=== PATIENT | female | born 1940 | race Caucasian/White ===

== ENCOUNTER 2018-08-04 08:35 | Day surgery (SDC) | payer SELFPAY ==
[2018-08-03 12:10] VITALS: BMI 32.8
[2018-08-04] MEDS ORDERED: ROCURONIUM BROMIDE 50 MG/5 ML VIAL ONE ×2 (10:02→11:45)
[2018-08-04] MEDS ORDERED: SUCCINYLCHOLINE CHLORIDE 200 MG/10 ML VIAL ONE (10:02)
[2018-08-04] MEDS ORDERED: PROPOFOL 20 ML ONE (10:02)
[2018-08-04] MEDS ORDERED: fentaNYL CITRATE 250 MCG/5 ML VIAL ONE (10:02)
[2018-08-04] MEDS ORDERED: LIDOCAINE HCL/PF 2% SDV 5ML VIAL ONE (10:03)
[2018-08-04] MEDS ORDERED: MIDAZOLAM HCL 2 MG/2 ML SINGLE DOSE VIAL ONE (10:03)
[2018-08-04] MEDS ORDERED: DEXAMETHASONE SOD PHOSPHATE 4 MG/1 ML VIAL ONE (10:03)
[2018-08-04] MEDS ORDERED: LACTATED RINGERS SOLUTION 1,000 ML IV SCH (10:15)
[2018-08-04] MEDS ORDERED: PHENYLEPHRINE HCL 10 MG/1 ML SINGLE DOSE VIAL ONE (10:22)
[2018-08-04] MEDS ORDERED: ceFAZolin SODIUM 1 GM VIAL ONE (10:45)
[2018-08-04] MEDS ORDERED: ceFAZolin SODIUM 1 GM VIAL IVPB ONE (10:47)
[2018-08-04] MEDS ORDERED: MINERAL OIL 25 ML OIL ONE (12:00)
--- NOTE | 2018-08-04 13:27 | OP ---
Operative Note - Note: Operative Date: 08/04/18 Pre-Operative Diagnosis: Aging Face Operation: Facelift Post-Operative Diagnosis: Same as Pre-op Surgeon: Zain Taylor Anesthesia: General Estimated Blood Loss (mls): 20
[2018-08-04] MEDS: ONDANSETRON 4 MG/2 ML VIAL IVPUSH PRN ×2 (13:30→14:30)
[2018-08-04] MEDS ORDERED: ONDANSETRON 4 MG/2 ML VIAL ONE (13:32)
[2018-08-04] MEDS ORDERED: ONDANSETRON 4 MG/2 ML VIAL IVPUSH ONE (14:19)
[2018-08-04 17:15] VITALS: BP 113/64; PULSE 91; TEMP 97.4
--- NOTE | 2018-08-05 14:28 | OP ---
DATE OF OPERATION: 08/04/2018 SURGEON: Alfredito Taylor MD PREOPERATIVE DIAGNOSIS: Aging face deformity. POSTOPERATIVE DIAGNOSIS: Aging face deformity. OPERATIVE PROCEDURE: Face lift with related procedures of liposuction and fat transfer to the nasal labial folds. 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 The risks and benefits of surgical versus nonsurgical alternatives as well as the material complications of the procedure were described with the patient on multiple occasions preoperatively. She had medical clearance for the procedure and the procedure was discussed preoperatively in the holding area as well as marked in the sitting position with the patient's knowledge of both the incisions and the plan for the procedure. All questions were asked and answered. OPERATIVE PROCEDURE IN DETAIL: The patient was taken to the operating room and after induction of general anesthesia in supine position, both arms were tucked and padded and then the prepping and draping of the face was carried out with head drape in the usual fashion. One percent local lidocaine anesthesia with 1:200,000 epinephrine was injected along the preauricular and postauricular incisions in the usual fashion for face lift and in the submental area of the chin. At this point, a dilute epinephrine solution was injected into the neck for liposuction of the neck and harvest of subcutaneous fat. After allowing 10 minutes of topical anesthesia and hemostasis, incision was made in the submental crease with a stab incision. Using the Hussein cannula, a suction-assisted lipectomy was carried out over the entire neck from both the submental position and then by making stabs in the preauricular area at the lobule. Approaches from both sides were also suctioned along the neck area and the jaw line. Once this was accomplished, tissue was harvested and protected on the back table in sterile fashion. A standard face lift was carried out using an incision in the preauricular post tragal area and extending around the lobule to the retroauricular area and down the neck line. Skin flaps were raised using optical magnification of 2.5 power and these were carried forward over the SMAS on the right side. Hemostasis was meticulously obtained throughout and then a SMAS incision was made and the SMAS itself was raised toward the midline and nasolabial fold. A sub SMAS dissection was carried out, protecting the nerves very carefully and then the SMAS was elevated and rotated superiorly and medially, elevating the neck and check tissues. This was imbricated and tacked using 4-0 Vicryl sutures in interrupted fashion in multiple locations elevating the SMAS into its new position. The skin and subcutaneous tissues were then advanced superiorly and laterally, putting the skin into a pleasing contour over the ear and redraped. Skin was then excised on the right side to a pleasing contour with the patient in the midline position. Once this was accomplished, the wounds were closed using interrupted 3-0 Biosyn suture on the deep tissue, running 4-0 Prolene in the postauricular area and then cody along the hairline and a 5-0 nylon suture in front of the ear in the preauricular area along the tragus and superiorly along the ear itself. The patient was then turned to the opposite position and the exact same procedure was carried out symmetrically on the opposite left side. Once this was completed with all the suturing, the fatty tissue dermal fat was then taken. Stab incisions made in the alar base and dissection was carried along the nasolabial fold and marionette lines. This tissue was then placed into the subdermal space using the Hussein cannula and applying the fat down both areas of the face. Good shape and contour was seen of the midface, neck, jawline and cheeks, and the wounds were closed with interrupted nylon sutures on the alar base and submental area, a fluff dressing using cotton batting with mineral oil and a fluff dressing with a circumferential wrap with Zenon bandage and a Coban. The patient tolerated the procedure well. She was awakened, extubated, and transferred to the recovery room in satisfactory condition and showed good evidence of mouth and facial movement. ALFREDITO TAYLOR M.D. [id number]
== END 2018-08-04 16:55 | disposition home or self-care (01) ==
LOC: JASU-SURG 08:35
PROVIDERS: ATTEND Plastic Surgery
CPT/HCPCS: 94760